=== PATIENT | female | born 1995 | race African-American/Black ===

== ENCOUNTER 2018-05-03 15:38 | Emergency (ER) | payer MEDICAID ==
[~2018-05-03] VITALS: Ht 167.6 cm; Wt 51.9 kg
[2018-05-03 16:01] VITALS: BP 120/67; Ht 167.6 cm; Wt 51.9 kg
== END 2018-05-03 19:45 | disposition home or self-care (01) ==
LOC: ED 15:38
DX: R51 Headache (principal)